=== PATIENT | female | born 1975 | race Asian ===

== ENCOUNTER 2017-04-29 15:29 | Emergency (ER) | payer OTHER ==
[2017-04-29 20:47] LABS: URINE BLOOD (Dip) POC 3+ (NEGATIVE); URINE GLUCOSE (Dip) POC Negative (NEGATIVE); URINE KETONES (Dip) POC 4+ (NEGATIVE); URINE LEUKOCYTE EST (Dip) POC 3+ (NEGATIVE); URINE NITRITE (Dip) POC Positive (NEGATIVE); URINE TOTAL PROTEIN POC 3+ (NEGATIVE)
[2017-04-29 20:47] LABS: URINE PH (Dip) POC 5.5 (5.0-8.5)
[2017-04-29] MEDS: morphine 2 MG INJ IV (21:04)
[2017-04-29] MEDS: LACTATED RINGER'S 1,000 ML IV (21:04)
[2017-04-29] MEDS: KETOROLAC 30 MG INJ IV (21:04)
[2017-04-29 21:13] LABS: ADD MAN DIFF? NO
[2017-04-29 21:16] LABS: BASOPHIL # 0.1 10^3/ul (0.0-0.1); BASOPHILS % 0.5 % (0.0-2.0); EOSINOPHILS # 0.1 10^3/ul (0.0-0.5); EOSINOPHILS % 0.5 % (0.0-7.0); HEMATOCRIT 38.9 % (37.0-47.0); HEMOGLOBIN 12.8 g/dl (12.0-16.0); LYMPHOCYTES # 2.3 10^3/ul (0.8-2.9); MEAN CORPUSCULAR HEMOGLOBIN 29.6 pg (29.0-33.0); MEAN CORPUSCULAR HGB CONC 32.9 g/dl (32.0-37.0); MEAN CORPUSCULAR VOLUME 89.8 fl (82.0-101.0); MEAN PLATELET VOLUME 9.6 fl (7.4-10.4); MONOCYTE # 0.6 10^3/ul (0.3-0.9); MONOCYTES % 4.2 % (0.0-11.0); NEUTROPHIL # 11.4 10^3/ul (1.6-7.5); NEUTROPHILS % 78.5 % (39.0-77.0); PLATELET COUNT 442 10^3/UL (140-415); RED BLOOD COUNT 4.33 10^6/ul (4.20-5.40); RED CELL DISTRIBUTION WIDTH 13.1 % (11.5-14.5)
[2017-04-29 21:16] LABS: WHITE BLOOD COUNT 14.5 10^3/ul (4.8-10.8)
[2017-04-29] MEDS: CEFTRIAXONE 1 GM/50 ML (PMX) 50 ML IVPB (21:35)
[2017-04-29 21:44] LABS: ALANINE AMINOTRANSFERASE 26 IU/L (13-69); ALBUMIN 4.7 g/dl (3.3-4.9); ALBUMIN/GLOBULIN RATIO 1.06; ALKALINE PHOSPHATASE 100 IU/L (42-121); ANION GAP 17 (8-16); ASPARTATE AMINO TRANSFERASE 25 IU/L (15-46); BILIRUBIN,INDIRECT 0.4 mg/dl (0-1.1); BILIRUBIN,TOTAL 0.4 mg/dl (0.2-1.3); BLOOD UREA NITROGEN 11 mg/dl (7-20); CALCIUM 10.2 mg/dl (8.4-10.2); CARBON DIOXIDE 22 mmol/L (21-31); CHLORIDE 106 mmol/L (97-110); CREATININE 0.61 mg/dl (0.44-1.00); GLUCOSE 101 mg/dl (70-220); LIPASE 83 U/L (23-300); POTASSIUM 4.4 mmol/L (3.5-5.1); SODIUM 141 mmol/L (135-144); TOTAL PROTEIN 9.1 g/dl (6.1-8.1)
[2017-04-29] MEDS ORDERED: ONDANSETRON (ODT) 4 MG TAB ODT (22:05)
== END 2017-04-29 22:20 | disposition home or self-care (01) ==
LOC: FTE 15:29
DX: N39.0 Urinary tract infection, site not specified (principal); Z87.891 Personal history of nicotine dependence
CPT/HCPCS: 36415; 76830; 76856; 80053; 81003; 83690; 85025; 96374; 96375; 99285-25

== ENCOUNTER 2017-12-03 06:04 | Day surgery (SDC) | payer OTHER ==
[2017-12-03] MEDS: LACTATED RINGER'S 1,000 ML IV* (06:00)
[2017-12-03] MEDS ORDERED: LIDOCAINE 2% (SDV) 5 ML INJ (07:00)
[2017-12-03] MEDS ORDERED: PROPOFOL 100 ML (07:35)
[2017-12-03] MEDS ORDERED: KETOROLAC 30 MG INJ (07:58)
[2017-12-03] MEDS ORDERED: CEFAZOLIN 1 GM INJ (07:58)
[2017-12-03] MEDS ORDERED: DEXAMETHASONE 4 MG/ML 1 ML INJ (08:00)
[2017-12-03] MEDS ORDERED: ONDANSETRON 4 MG INJ (08:01)
[2017-12-03] MEDS ORDERED: OXYCODONE/ACETAMINOPHEN (5/325) TAB PO ×2 (10:00)
[2017-12-03] MEDS ORDERED: LABETALOL HCL 20MG INJ IV (10:00)
[2017-12-03] MEDS ORDERED: MIDAZOLAM 1 MG/ML 2 ML INJ IV (10:00)
[2017-12-03] MEDS ORDERED: EPHEDrine SULFATE 50 MG/5 ML SYG IV (10:00)
[2017-12-03] MEDS ORDERED: DIPHENHYDRAMINE 50 MG INJ IV (10:00)
[2017-12-03] MEDS ORDERED: ALBUTEROL 0.083% (NEB) 2.5 MG/3 ML AMP HHN (10:00)
[2017-12-03] MEDS ORDERED: METOCLOPRAMIDE 10 MG INJ IV (10:00)
[2017-12-03] MEDS ORDERED: hydrALAzine 20 MG INJ IV (10:00)
[2017-12-03] MEDS ORDERED: KETOROLAC 30 MG INJ IV (10:00)
[2017-12-03] MEDS ORDERED: FENTAnyl 50 MCG/ML VIAL IV ×2 (10:00)
[2017-12-03] MEDS ORDERED: ONDANSETRON 4 MG INJ IV (10:00)
[2017-12-03] MEDS ORDERED: HYDROmorphONE 1 MG/5 ML IV SYRINGE IV ×2 (10:00)
[2017-12-03] MEDS: MEPERIDINE 25 MG INJ IV (10:06)
[2017-12-03] MEDS: FENTAnyl 50 MCG/ML VIAL IV (10:18)
== END 2017-12-03 11:29 | disposition home or self-care (01) ==
LOC: SDS 06:04
DX: N92.0 Excessive and frequent menstruation with regular cycle (principal); D25.9 Leiomyoma of uterus, unspecified
CPT/HCPCS: 58561; 84703; 88305; 90686

== ENCOUNTER 2017-12-12 22:45 | Emergency (ER) | payer OTHER | END 2017-12-13 00:30 | disposition home or self-care (01) | LOC: E/R 22:45 | DX: G89.18 Other acute postprocedural pain (principal); K59.00 Constipation, unspecified; Z85.6 Personal history of leukemia | CPT/HCPCS: 99282; Z7502 ==

== ENCOUNTER 2018-06-25 04:24 | Emergency (ER) | payer OTHER ==
[2018-06-25 05:13] LABS: ADD UMIC YES; UR ASCORBIC ACID NEGATIVE (NEGATIVE); UR BACTERIA FEW /HPF (NONE SEEN); UR BILIRUBIN (Dip) NEGATIVE (NEGATIVE); UR BLOOD (Dip) 2+ mg/dL (NEGATIVE); UR CLARITY CLEAR (CLEAR); UR COLOR YELLOW (YELLOW); UR GLUCOSE (Dip) NEGATIVE (NEGATIVE); UR KETONES (Dip) NEGATIVE (NEGATIVE); UR LEUKOCYTE ESTERASE (Dip) NEGATIVE Leu/ul (NEGATIVE); UR NITRITE (Dip) NEGATIVE (NEGATIVE); UR RBC 1 /HPF (0-5); UR SPECIFIC GRAVITY (Dip) 1.015 (1.003-1.030); UR SQUAMOUS EPITHELIAL CELL FEW /HPF (FEW); UR TOTAL PROTEIN (Dip) NEGATIVE (NEGATIVE); UR UROBILINOGEN (Dip) NEGATIVE (NEGATIVE); UR WBC 2 /HPF (0-5)
[2018-06-25 05:22] LABS: ADD MAN DIFF? NO
[2018-06-25 05:27] LABS: BASOPHIL # 0.1 10^3/ul (0.0-0.1); BASOPHILS % 0.6 % (0.0-2.0); EOSINOPHILS # 0.2 10^3/ul (0.0-0.5); EOSINOPHILS % 0.9 % (0.0-7.0); HEMATOCRIT 37.3 % (37.0-47.0); HEMOGLOBIN 12.1 g/dl (12.0-16.0); LYMPHOCYTES % 19.8 % (15.0-51.0); MEAN CORPUSCULAR HEMOGLOBIN 26.2 pg (29.0-33.0); MEAN CORPUSCULAR HGB CONC 32.4 g/dl (32.0-37.0); MEAN CORPUSCULAR VOLUME 80.9 fl (82.0-101.0); MEAN PLATELET VOLUME 9.3 fl (7.4-10.4); MONOCYTES % 4.7 % (0.0-11.0); NEUTROPHIL # 14.8 10^3/ul (1.6-7.5); NEUTROPHILS % 73.4 % (39.0-77.0); PLATELET COUNT 608 10^3/UL (140-415); RED BLOOD COUNT 4.61 10^6/ul (4.20-5.40); RED CELL DISTRIBUTION WIDTH 14.9 % (11.5-14.5)
[2018-06-25 05:27] LABS: WHITE BLOOD COUNT 20.2 10^3/ul (4.8-10.8)
[2018-06-25 05:58] LABS: ALANINE AMINOTRANSFERASE 14 IU/L (13-69); ALBUMIN 4.9 g/dl (3.3-4.9); ALBUMIN/GLOBULIN RATIO 0.92; ALKALINE PHOSPHATASE 124 IU/L (42-121); ANION GAP 16 (5-13); ASPARTATE AMINO TRANSFERASE 26 IU/L (15-46); BILIRUBIN,INDIRECT 0.2 mg/dl (0-1.1); BILIRUBIN,TOTAL 0.2 mg/dl (0.2-1.3); BLOOD UREA NITROGEN 11 mg/dl (7-20); CARBON DIOXIDE 20 mmol/L (21-31); CHLORIDE 105 mmol/L (97-110); CREATININE 0.63 mg/dl (0.44-1.00); Estimated GFR > 60 mL/min (>60); GLUCOSE 109 mg/dl (70-220); LIPASE 664 U/L (23-300); POTASSIUM 4.4 mmol/L (3.5-5.1); SODIUM 141 mmol/L (135-144); TOTAL PROTEIN 10.2 g/dl (6.1-8.1)
[2018-06-25] MEDS: SOD CHLORIDE 0.9% 1,000 ML IV (06:00)
[2018-06-25] MEDS: ONDANSETRON 4 MG INJ IV (06:02)
[2018-06-25] MEDS: HYDROmorphONE 1 MG/ML SYG IV (06:03)
[2018-06-25] MEDS: KETOROLAC 15 MG INJ IV (06:17)
== END 2018-06-25 08:24 | disposition left against medical advice (07) ==
LOC: E/R 04:24
DX: D72.829 Elevated white blood cell count, unspecified (principal); R11.10 Vomiting, unspecified; R10.2 Pelvic and perineal pain; Z85.6 Personal history of leukemia
CPT/HCPCS: 36415; 74176; 76830; 76856; 80053; 81001; 83690; 84703; 85025; 96374; 96375; 99285-25